=== PATIENT | male | born 1970 | race Caucasian/White ===

== ENCOUNTER 2021-03-27 05:49 | Emergency (ER) | payer OTHER ==
[2021-03-27 07:01] LABS: CORONAVIRUS COVID-19 NAA NEGATIVE (NEGATIVE)
[2021-03-27 07:02] LABS: RESPIRATORY SYNCYTIAL VIR NAA NEGATIVE (NEGATIVE)
[2021-03-27] MEDS ORDERED: Albuterol 2.5 MG/0.5 ML UD Neb NEB STA (07:17)
== END 2021-03-27 07:39 | disposition home or self-care (01) ==
LOC: VM.ED 05:49
DX: J40 Bronchitis, not specified as acute or chronic (principal); Z88.1 Allergy status to other antibiotic agents; Z88.2 Allergy status to sulfonamides; Z87.891 Personal history of nicotine dependence; Z20.822 Contact with and (suspected) exposure to COVID-19
CPT/HCPCS: 0241U; 99283; 99283-25; J7611

== ENCOUNTER 2021-06-28 04:45 | Emergency (ER) | payer OTHER ==
[2021-06-28] MEDS ORDERED: Sodium Chloride 0.9% 10 ML Syringe FLUSH PRN (04:56)
[2021-06-28] MEDS ORDERED: Ondansetron 4 MG/2 ML SDV IVPUSH ONE (04:57)
[2021-06-28] MEDS ORDERED: Ketorolac 15 MG/ML SDV IVPUSH ONE (04:58)
[2021-06-28] MEDS ORDERED: Sodium Chloride 0.9% 1,000 ML IV SCH ×2 (05:00→06:15)
[2021-06-28 05:30] LABS: CHLORIDE,CL 90 mmol/L (98-107)
[2021-06-28 05:36] LABS: SODIUM,NA 123 mmol/L (136-145)
[2021-06-28 05:51] LABS: CORONAVIRUS COVID-19 NAA POSITIVE (NEGATIVE); RESPIRATORY SYNCYTIAL VIR NAA NEGATIVE (NEGATIVE)
== END 2021-06-28 08:18 | disposition home or self-care (01) ==
LOC: VM.ED 04:45
DX: U07.1 COVID-19 (principal); E86.0 Dehydration; E87.1 Hypo-osmolality and hyponatremia; F41.9 Anxiety disorder, unspecified; Z79.899 Other long term (current) drug therapy; Z88.1 Allergy status to other antibiotic agents
CPT/HCPCS: 0241U; 80053; 83735; 84100; 85025; 86140; 96374; 96375; 99284; 99284-25; J1885; J2405; J7030

== ENCOUNTER 2024-04-11 05:00 | Emergency (ER) | payer OTHER ==
[2024-04-11] MEDS: Oseltamivir 75 MG Cap PO SCH (06:00)
== END 2024-04-11 06:25 | disposition home or self-care (01) ==
LOC: VM.ED 05:00
DX: J10.1 Influenza due to other identified influenza virus with other respiratory manifestations (principal); Z88.1 Allergy status to other antibiotic agents; Z88.2 Allergy status to sulfonamides; Z79.82 Long term (current) use of aspirin; Z79.899 Other long term (current) drug therapy; Z86.16 Personal history of COVID-19
CPT/HCPCS: 71046; 87428-QW; 93005; 99285; A9270-GY

== ENCOUNTER 2024-07-21 08:22 | Emergency (ER) | payer OTHER ==
[2024-07-21] MEDS: Orphenadrine 60 MG/2 ML Inj IM ONE (09:19)
[2024-07-21] MEDS: Ketorolac 30 MG/ML SDV IM ONE (09:19)
[2024-07-21] MEDS: Take Home: Cyclobenzaprine 10 MG Tab, 4 Tab Pack PO ONE (10:01)
[2024-07-21] MEDS: Take Home: Naproxen 500 MG Tab, 4 Tab Pack PO ONE (10:01)
== END 2024-07-21 09:37 | disposition home or self-care (01) ==
LOC: SUPCPDRO 08:22 → VM.ED 08:22
DX: M54.16 Radiculopathy, lumbar region (principal); Z79.899 Other long term (current) drug therapy; Z79.82 Long term (current) use of aspirin; Z88.1 Allergy status to other antibiotic agents; Z88.2 Allergy status to sulfonamides
CPT/HCPCS: 96372; 99283; A9270-GY; J1885; J2360